=== PATIENT | female | born 1980 | race Caucasian/White ===

== ENCOUNTER 2017-03-25 04:48 | Inpatient (IN) | payer BC, OTHER ==
[2017-03-25] MEDS ORDERED: OBEPIDURAL* 250 ML ONE (05:31)
[2017-03-25 05:36] LABS: Hematocrit 38 % (35-47); Hemoglobin 12.8 g/dl (12.0-16.0); Mean Corpuscular HGB Conc 34 g/dl (31-36); Mean Corpuscular Hemoglobin 30 pg (27-31); Mean Corpuscular Volume 90 fL (80-97); Mean Platelet Volume 9 um3 (7.4-10.4); Red Blood Count 4.21 10^6/ul (4.0-5.4); Red Cell Distribution Width 19 % (10.5-15)
[2017-03-25] MEDS ORDERED: Famotidine TAB* 20 MG PO PRN (05:49)
[2017-03-25] MEDS ORDERED: Sodium Citrate/Citric Acid* 15 ML UDC PO PRN (05:49)
[2017-03-25] MEDS ORDERED: Phenylephrine IV* 40 MCG/ML 10 ML SYRINGE IV PUSH PRN ×2 (05:49)
[2017-03-25] MEDS ORDERED: Oxytocin in LR* 20 UNITS/1,000 ML BAG IVPB SCH (16:00)
[2017-03-25] MEDS ORDERED: ceFOXitin 2 GM IVPREMIX* 0 GM/0 ML BAG ONE (19:35)
[2017-03-25] MEDS ORDERED: Sodium Citrate/Citric Acid* 15 ML UDC ONE (19:35)
[2017-03-25] MEDS ORDERED: Chloroprocaine 3%* 20 ML VIAL ONE (22:02)
[2017-03-25] MEDS ORDERED: Witch Hazel PAD* JAR TOPICAL PRN (23:06)
[2017-03-25] MEDS ORDERED: Acetaminophen TAB* 325 MG PO PRN (23:06)
[2017-03-25] MEDS ORDERED: Glycerin ADULT SUPP PR PRN (23:06)
[2017-03-25] MEDS ORDERED: Dibucaine 1% 28.35 GM TUBE PR PRN (23:06)
[2017-03-25] MEDS: Ibuprofen TAB* 600 MG PO PRN (23:49)
[2017-03-26 07:06] LABS: Hematocrit 29 % (35-47); Hemoglobin 9.5 g/dl (12.0-16.0); Mean Corpuscular HGB Conc 33 g/dl (31-36); Mean Corpuscular Hemoglobin 30 pg (27-31); Mean Corpuscular Volume 91 fL (80-97); Mean Platelet Volume 9 um3 (7.4-10.4); Red Blood Count 3.15 10^6/ul (4.0-5.4); Red Cell Distribution Width 19 % (10.5-15); White Blood Count 18.7 10^3/ul (3.5-10.8)
[2017-03-26] MEDS: Ibuprofen TAB* 600 MG PO PRN ×3 (07:15→21:36)
[2017-03-26] MEDS ORDERED: Simethicone CHEW TAB* 80 MG PO SCH (08:30)
[2017-03-26] MEDS: Ferrous Gluconate TAB* 324 MG TAB PO SCH ×2 (09:37→21:36)
[2017-03-26] MEDS: Docusate CAP* 100 MG PO SCH ×3 (09:37→21:00)
--- NOTE | 2017-03-26 20:31 | PTEDU ---
Patient Name: MULUGETA LOUIS MULUGETA LOUIS selected video: Never Ever Shake a Baby to view on 03/26/2017 at 8:31:29 PM from [id number]
--- NOTE | 2017-03-26 20:42 | PTEDU ---
Patient Name: MULUGETA LOUIS MULUGETA LOUIS selected video: Follow Me Mum: [facility] to view on 03/26 at 8:41:46 PM [id number]
[2017-03-27] MEDS: Ibuprofen TAB* 600 MG PO PRN ×3 (07:24→19:40)
[2017-03-27] MEDS: Ferrous Gluconate TAB* 324 MG TAB PO SCH ×2 (07:25→23:24)
[2017-03-27] MEDS: Docusate CAP* 100 MG PO SCH ×3 (07:25→23:24)
[2017-03-27] MEDS: OBEPIDURAL* 250 ML EPIDURAL SCH (19:14)
[2017-03-27 19:59] VITALS: BP 132/79
== END 2017-03-27 20:30 | disposition home or self-care (01) | DRG 560 ==
LOC: MCHOBOUT 04:48 → MCHOB 05:07
PROVIDERS: ADMIT Obstetrics & Gynecology; ATTEND Obstetrics & Gynecology
PROC: 10E0XZZ Delivery of Products of Conception, External Approach (ICD-10-PCS; principal; 2017-03-25)
PROC: 0KQM0ZZ Repair Perineum Muscle, Open Approach (ICD-10-PCS; 2017-03-25)
DX: O60.2 Term delivery with preterm labor (principal); O30.043 Twin pregnancy, dichorionic/diamniotic, third trimester; O32.1XX0 Maternal care for breech presentation, not applicable or unspecified; Z37.2 Twins, both liveborn; O90.81 Anemia of the puerperium; O70.1 Second degree perineal laceration during delivery; O09.523 Supervision of elderly multigravida, third trimester; D64.9 Anemia, unspecified; Z3A.37 37 weeks gestation of pregnancy
CPT/HCPCS: 36415; 85025; 85027; 86850; 86900; 86901; 88307; A9270-GY; J0694; J2400

== ENCOUNTER 2019-08-11 19:47 | Inpatient (IN) | payer BC ==
[2019-08-11] MEDS ORDERED: Lactated Ringers 1000 ML Bag* 1,000 ML IV SCH ×2 (20:00→22:00)
[2019-08-11] MEDS ORDERED: Penicillin G Potassium IV* 5,000,000 UNITS in NS 0.9% 100 ML* 100 ML IVPB ONE (20:00)
[2019-08-11] MEDS ORDERED: Lactated Ringers 1000 ML Bag* 1,000 ML IV ONE (20:00)
[2019-08-11] MEDS ORDERED: Penicillin G Potassium IV* 2,500,000 UNITS in NS 0.9% 100 ML* 100 ML IVPB SCH (20:00)
[2019-08-11] MEDS ORDERED: Buffered Lidocaine 1% SYRIN* 1 ML/SYRINGE INTRADERM ONE (20:00)
--- NOTE | 2019-08-11 20:12 | HP ---
General Information - Reason for Visit 38yo, , IUP@39+3 here in active labor - General Information Maternal Age: 38 Grav: 4 Para: 1 SAB: 2 IEA: 0 Estimated Due Date: 08/15/19 Determined By: Early Ultrasound Gestational Age in Weeks/Days: 39+3 Maternal Blood Type and Rh: A Positive - Results this Serology/RPR Result: Non-Reactive Rubella Result: Immune HBsAg Result: Negative HIV Result: Negative GBS Culture Result: Positive Past Medical History Delivery History: Hx Complicated Vaginal Delivery - Hx of twin vaginal Delivery History Comment: second degree laceration Past Medical History Comment: No current problems Past Surgical History Comment: D&C 04/30/2014 Family History Comment: Father: polyneuropathy, basal cell carcinoma Mother: epilepsy, breast cancer (age 66 yrs) PGM: DMII PGF: Alzheimer's MGM: Stroke MGF: Prostate cancer - Antepartal Records Antepartal Records: Reviewed, Complicated by: - AMA, GBS+ Review of Systems Constitutional: Uncomfortable CV Complaint: No Respiratory: Shortness of Breath: No Gastrointestinal: No Nausea/Vomiting Genitourinary: No Dysuria, No Bleeding, No Leaking Fluid Musculoskeletal: Contractions Neurological: No Headache, No Visual Changes Movement: Normal Exam Allergies/Adverse Reactions: Allergies cephalexin Allergy (Verified 08/11/19 21:55) Rash warfarin Adverse Reaction (Verified 08/11/19 21:55) See Comment REQUIRES LOWER DOSE DUE TO GENETIC DISORDER 116/69, HR 76, Temp 97.8, O2 99% - Measurements Pre- Weight: 135 lb - Exam Breast: Breast Exam Deferred CVA: No CVA Tenderness Extremities: No Edema Heart: Normal Rhythm/Heart Sounds HEENT: No Significant Findings Lungs: Clear Bilaterally Rectal: Rectal Exam Deferred - Abdominal Exam Abdomen Exam: Non-Tender, Fundal Height Consistent with Dates - Ultrasound/Biophysical Profile Ultrasound Status: Not Done Targeted Exam Findings Estimated Weight: 8lbs Cervical Exam: 4cm, 5cm Effacement: 80% Station: -1 Presenting Part: Vertex Membrane Status: Intact Bleeding/Discharge: None EFM Findings - External Monitor Findings Baseline Heart Rate: 140 External Monitor Findings: Accelerations Present, No Pattern of Variable or Late Decelerations, Variability Moderate, Baseline Stable External Monitor Findings Comment: No evidence of metabolic acidemia Contractions: Regular Contraction Frequency: q3-4 Assessment/Plan - Assessment 38yo, IUP@39+3 here in active labor complicated by AMA, GBS+ Hx of twin, vaginal No evidence of metabolic acidemia Regular contractions, palpate strong Requesting nitrous oxide for pain medication - Plan Plan Comment: Admit to L&D VE PRN Nitrous oxide now Anticipate progression to - Date/Time of Admission Date of Admission: 08/11/19 Time of Admission: 20:00
[2019-08-11 20:24] LABS: ABS Basophils 0.1 10^3/ul (0-0.2); ABS Eosinophils 0.1 10^3/ul (0-0.6); ABS Lymphocytes 2.3 10^3/ul (1.0-4.8); ABS Monocytes 0.8 10^3/ul (0-0.8); ABS Neutrophils 6.6 10^3/ul (1.5-7.7); Eosinophil % 0.9 %; Hematocrit 36 % (35-47); Hemoglobin 11.7 g/dL (12.0-16.0); Lymphocyte % 23.1 %; Mean Corpuscular HGB Conc 33 g/dL (31-36); Mean Corpuscular Hemoglobin 28 pg (27-31); Mean Corpuscular Volume 84 fL (80-97); Mean Platelet Volume 9.6 fL (7.4-10.4); Platelet Count 255 10^3/uL (150-450); Red Blood Count 4.23 10^6 /uL (3.70-4.87); Red Cell Distribution Width 15 % (10-15); White Blood Count 9.8 10^3/uL (3.5-10.8)
--- NOTE | 2019-08-11 20:45 | PN ---
Progress Note - Progress Note Date of Service: 08/11/19 Note: S: Pt very uncomfortable. Requesting epidural O: VE /-1, bulging bag A: Active labor No evidence of metabolic acidemia Variables with contractions P: Epidural now Anesthesia aware. VE PRN Anticipate progression to
[2019-08-11] MEDS ORDERED: OBEPIDURAL* 0 ML EPIDURAL ONE (20:48)
[2019-08-11] MEDS ORDERED: Oxytocin in LR* 20 UNITS/1,000 ML BAG IVPB ONE (20:59)
[2019-08-11] MEDS ORDERED: Dibucaine 1% 28.35 GM TUBE PR PRN (21:48)
[2019-08-11] MEDS ORDERED: Glycerin ADULT SUPP PR PRN (21:48)
[2019-08-11] MEDS ORDERED: Acetaminophen TAB* 325 MG PO PRN (21:48)
--- NOTE | 2019-08-11 21:53 | PROCNOTE ---
[facility] OB: Delivery Note - Delivery A Date of : 08/11/19 Time of : 20:55 Gestational Age in Weeks and Days at Delivery: 39 Weeks and 3 Days Delivery Method: Spontaneous Vaginal Labor: Spontaneous Did Patient attempt ?: N/A, No Previous Amniotic Fluid: Clear Estimated Blood Loss: 250 Anesthesia/Analgesia: Nitrous-Labor Delivered By: Tamara Rodriguez Nursery Level of Nursery: Regular/Bedside - Perineum Perineal Injury: Perineal Laceration, 1st Degree Perineal Injury Comment: repaired under local anesthesia, 1% lidocaine Perineal Repair: By Delivering Practioner - Events Delivery Events of Note: Pitocin Only After Delivery, Precipitous Delivery, Antibiotics Indicated - Not Given - precipitous delivery, unable to infuse abx prior to - Additional Delivery Notes Additional Delivery Notes: G4, now P2 at 39+3 weeks was admitted in active labor on 08/11/19 at 1947. Following SROM at 2047, pt was complete/complete and began pushing at 2053. Spontaneous vaginal delivery of a liveborn male, OA to SARAHY followed after 1 minute of pushing. A nuchal cord was easily reduced on the perineum prior to delivery of the shoulders. was placed on mother's chest, HR >100, lusty cry, 's 9, 9. Cord was doubly clamped and cut by FOB once pulsations ceased. The placenta delivered spontaneously via le at 2102. Fundus firm, IV pitocin infusing. Perineum and vagina carefully inspected. A first degree perineal laceration was identified and repaired under local anesthesia with 1% lidocaine. Laceration repaired in the usual fashion, normal anatomy restored, hemostasis achieved. EBL 250mL. Male infant breast feeding. Mother and baby stable at time of note.
[2019-08-11] MEDS: Witch Hazel PAD* JAR TOPICAL PRN (22:00)
[2019-08-11] MEDS ORDERED: Oxytocin in LR* 20 UNITS/1,000 ML BAG IVPB SCH (22:00)
[2019-08-11] MEDS: Ibuprofen TAB* 600 MG PO PRN (22:00)
[2019-08-11] MEDS ORDERED: Ammonia Inhalant* 1 EA AMP ONE (22:58)
[2019-08-12] MEDS ORDERED: Lidocaine 1% INJ* 10 MG/ML 30 ML SDV ONE (04:18)
[2019-08-12 06:50] LABS: ABS Lymphocytes 2.1 10^3/ul (1.0-4.8); ABS Monocytes 0.9 10^3/ul (0-0.8); ABS Neutrophils 9.1 10^3/ul (1.5-7.7); Eosinophil % 0.4 %; Hematocrit 32 % (35-47); Hemoglobin 10.6 g/dL (12.0-16.0); Lymphocyte % 17.1 %; Mean Corpuscular HGB Conc 33 g/dL (31-36); Mean Corpuscular Hemoglobin 28 pg (27-31); Mean Corpuscular Volume 85 fL (80-97); Mean Platelet Volume 9.5 fL (7.4-10.4); Platelet Count 232 10^3/uL (150-450); Red Blood Count 3.75 10^6 /uL (3.70-4.87); Red Cell Distribution Width 15 % (10-15); White Blood Count 12.1 10^3/uL (3.5-10.8)
[2019-08-12] MEDS: Docusate CAP* 100 MG PO SCH ×3 (08:19→21:01)
[2019-08-12] MEDS ORDERED: Simethicone TAB* 80 MG TAB.CHEW PO SCH (08:30)
[2019-08-12] MEDS ORDERED: Ferrous Gluconate TAB* 324 MG TAB PO SCH (09:00)
[2019-08-12 10:57] LABS: Urine Benzodiazepine Screen None Detected (None Detect); Urine Opiates Screen None Detected (None Detect)
--- NOTE | 2019-08-12 11:14 | PTEDU ---
Patient Name: MULUGETA LOUIS MULUGETA LOUIS selected video: Follow Me Mum: [facility] Successful to view on 2018 at 11:12:07 AM [id number]
[2019-08-12] MEDS: Ibuprofen TAB* 600 MG PO PRN ×2 (15:19→21:01)
--- NOTE | 2019-08-13 08:15 | PTEDU ---
Patient Name: MULUGETA LOUIS MULUGETA LOUIS selected video: BBOB: Nurturing Your Gorgeous &Growing Baby by to view on 08/13/2019 at 8:13:07 AM [id number]
[2019-08-13] MEDS: Docusate CAP* 100 MG PO SCH ×2 (08:43→14:18)
[2019-08-13] MEDS: Ibuprofen TAB* 600 MG PO PRN (08:43)
--- NOTE | 2019-08-13 08:55 | PTEDU ---
Patient Name: MULUGETA LOUIS MULUGETA LOUIS selected video: Follow Me Mum: [facility] to Successful to view on 2018 at 8:53:08 AM [id number]
[2019-08-13] MEDS: Witch Hazel PAD* JAR TOPICAL PRN (09:20)
[2019-08-13] MEDS ORDERED: Influenza VAC *QUAD* 2019-20* 0.5 ML SYRINGE IM ONE (14:40)
[2019-08-13 16:01] VITALS: BP 111/68
== END 2019-08-13 18:50 | disposition home or self-care (01) | DRG 560 ==
LOC: MCHOBOUT 19:47 → MCHOB 19:53
PROVIDERS: ADMIT Advanced Practice Midwife; ATTEND Advanced Practice Midwife
PROC: 10E0XZZ Delivery of Products of Conception, External Approach (ICD-10-PCS; principal; 2019-08-11)
PROC: 0HQ9XZZ Repair Perineum Skin, External Approach (ICD-10-PCS; 2019-08-11)
PROC: 4A1HXCZ Monitoring of Products of Conception, Cardiac Rate, External Approach (ICD-10-PCS; 2019-08-11)
DX: O99.824 Streptococcus B carrier state complicating childbirth (principal); Z37.0 Single live birth; O69.81X0 Labor and delivery complicated by cord around neck, without compression, not applicable or unspecified; O69.82X0 Labor and delivery complicated by other cord entanglement, without compression, not applicable or unspecified; O62.3 Precipitate labor; O70.0 First degree perineal laceration during delivery; Z88.1 Allergy status to other antibiotic agents; Z88.8 Allergy status to other drugs, medicaments and biological substances; Z3A.39 39 weeks gestation of pregnancy
CPT/HCPCS: 36415; 80307; 85025; 86850; 86900; 86901; A9270-GY; J2540

== ENCOUNTER 2022-12-19 18:29 | Observation (INO) ==
[2022-12-19 20:15] LABS: ABS Lymphocytes 0.7 10^3/ul (1.0-4.8); ABS Monocytes 0.4 10^3/ul (0-0.8); ABS Neutrophils 16.6 10^3/ul (1.5-7.7); Hematocrit 40 % (35-47); Hemoglobin 13.4 g/dL (12.0-16.0); Mean Corpuscular HGB Conc 33 g/dL (31-36); Mean Corpuscular Hemoglobin 31 pg (27-31); Mean Corpuscular Volume 93 fL (80-97); Mean Platelet Volume 8.2 fL (7.4-10.4); Platelet Count 241 10^3/uL (150-450); Red Blood Count 4.31 10^6 /uL (3.70-4.87); Red Cell Distribution Width 13 % (10-15); White Blood Count 17.7 10^3/uL (3.5-10.8)
[2022-12-19 20:43] LABS: ALT 14 U/L (7-52); AST 14 U/L (13-39); Albumin 4.7 g/dL (3.2-5.2); Albumin/Globulin Ratio 1.7 (1-3); Alkaline Phosphatase 37 U/L (35-149); Anion Gap 8 mmol/L (2-11); Blood Urea Nitrogen 14 mg/dL (6-24); C Reactive Protein 4.22 mg/L (<8.01); CO2 Carbon Dioxide 23 mmol/L (22-32); Calcium 9.4 mg/dL (8.6-10.3); Chloride 103 mmol/L (101-111); Creatinine, Serum 0.72 mg/dL (0.51-0.95); Globulin 2.7 g/dL (2-4); Glucose 116 mg/dL (70-100); Lipase 13 U/L (11.0-82.0); Potassium 4.1 mmol/L (3.5-5.0); Sodium 134 mmol/L (135-145); Total Protein 7.4 g/dL (6.4-8.9)
[2022-12-19 20:48] LABS: HCG Pregnancy < 0.60 mIU/mL
[2022-12-19] MEDS ORDERED: Metoclopramide 5 MG/ML VIAL (10 mg) IV ONE (21:01)
[2022-12-19] MEDS ORDERED: Lactated Ringers 1000 ml BAG 1,000 ML IV ONE ×2 (21:01)
[2022-12-19] MEDS ORDERED: Iohexol 350 (CONTRAST) 500 ML MDV IV ONE (21:13)
[2022-12-19] MEDS ORDERED: Piperacillin/Tazobac ADVAN 3.375 GM in NS 0.9% 100 ml BAG 100 ML IVPB ONE (22:37)
[2022-12-19] MEDS ORDERED: HYDROmorphone 1 MG/1 ML SYRINGE IV SLOW PU PRN (22:47)
[2022-12-19] MEDS ORDERED: Ondansetron 4 mg VIAL 2 MG/ML 2 ml VIAL IV PRN (22:47)
[2022-12-19] MEDS ORDERED: D5W 1/2 NS 1000 ml BAG 1,000 ML IV SCH (23:00)
[2022-12-20] MEDS: Piperacillin/Tazobac ADVAN 3.375 GM in NS 0.9% 100 ml BAG 100 ML IV SCH ×2 (03:40→12:10)
[2022-12-20 11:54] LABS: Urine Appearance Clear; Urine Bilirubin Negative (Negative); Urine Blood Negative (Negative); Urine Color Yellow; Urine Glucose Negative (Negative); Urine Ketones 1+ (Negative); Urine Nitrite Negative (Negative); Urine Protein Negative (Negative); Urine Urobilinogen Negative (Negative)
[2022-12-20 11:56] LABS: Urine Specific Gravity > 1.060 (1.002-1.030)
[2022-12-20] MEDS ORDERED: Bupivacaine 0.25% SDV 30 ML ONE (16:22)
[2022-12-20] MEDS ORDERED: Propofol 10 MG/ML 20 ML BTL ONE (16:40)
[2022-12-20] MEDS ORDERED: Lidocaine 2% PF 5 ML VIAL ONE (16:40)
[2022-12-20] MEDS ORDERED: Rocuronium 50 mg VIAL 10 mg/ml 5 ml VIAL (50 mg) ONE (16:40)
[2022-12-20] MEDS ORDERED: fentaNYL 100 mcg/2 ml 50 MCG/ML VIAL ONE (16:40)
[2022-12-20] MEDS ORDERED: Midazolam 2 mg/2 ml VIAL 1 mg/ml 2 ml VIAL (2 mg) ONE (16:42)
[2022-12-20] MEDS ORDERED: Ondansetron 4 mg VIAL 2 MG/ML 2 ml VIAL ONE (17:00)
[2022-12-20] MEDS ORDERED: Dexamethasone IV 4 MG/ML VIAL 1 ml VIAL ONE (17:00)
[2022-12-20 19:24] VITALS: BP 106/65
== END 2022-12-20 19:24 | disposition home or self-care (01) ==
LOC: ED 18:29 → EDHOLD 18:29
PROVIDERS: ADMIT Surgery Surgical Critical Care; ATTEND Surgery Surgical Critical Care